=== PATIENT | male | born 1990 | race Caucasian/White ===

== ENCOUNTER 2025-10-13 08:08 | Emergency (ER) | payer MEDICAID ==
[~2025-10-13] VITALS: Ht 167.6 cm; Wt 100.0 kg
[2025-10-13 08:11] VITALS: O2SAT 99
[2025-10-13] MEDS: IBUPROFEN 600MG TABLET PO ONE (09:02)
[2025-10-13 11:19] VITALS: BP 140/88; PULSE 85; RESP 16; TEMP 36.7; O2SAT 99
[2025-10-13] MEDS: TETANUS, DIPHTHERIA, PERTUSSIS VAC/PF 0.5ML (>10YR OLD) IM ONE (11:25)
== END 2025-10-13 11:26 | disposition home or self-care (01) ==
LOC: ER 08:08
DX: S62.011A Displaced fracture of distal pole of navicular [scaphoid] bone of right wrist, initial encounter for closed fracture (principal); Z23 Encounter for immunization; V18.4XXA Pedal cycle driver injured in noncollision transport accident in traffic accident, initial encounter; Y93.55 Activity, bike riding; Y92.89 Other specified places as the place of occurrence of the external cause; Y99.8 Other external cause status
CPT/HCPCS: 99284; 73110; 73130; 73562; 90715; 29125; 90471; A6449